=== PATIENT | male | born 1960 | race Caucasian/White ===

== ENCOUNTER 2017-09-19 20:39 | Inpatient (IN) | payer MEDICARE, MEDICAID ==
[~2017-09-19] VITALS: Ht 180.3 cm; Wt 56.8 kg
[~2017-09-19 20:39] MED LIST: ALBUTEROL SULFATE 2.5 MG/3 ML HHN SCH; CYCLOBENZAPRINE 10 MG TABLET PO PRN
[2017-09-19] MEDS ORDERED: SODIUM CHLORIDE FLUSH 10ML SYR IVF ONE (21:00)
[2017-09-19 21:06] LABS: BASOPHILS # (AUTO) 0.05 x10^3/uL (0-0.1); BASOPHILS % (AUTO) 0 % (0-1); EOSINOPHILS % (AUTO) 0 % (1-7); LYMPHOCYTES # (AUTO) 0.67 x10^3/uL (1-3.4); LYMPHOCYTES % (AUTO) 4 % (22-44); MD NO; MEAN CORPUSCULAR HEMOGLOBIN 26.1 pg (27.5-34.5); MEAN CORPUSCULAR HGB CONC 32.6 g/dL (33.2-36.2); MEAN CORPUSCULAR VOLUME 80.1 fL (81-97); MONOCYTES # (AUTO) 0.76 x10^3/uL (0.2-0.8); MONOCYTES % (AUTO) 5 % (2-9); NEUTROPHILS # (AUTO) 15.05 x10^3/uL (1.8-6.8); NEUTROPHILS % (AUTO) 91 % (42-75); PLATELET COUNT 229 x10^3/uL (130-400); RED CELL DISTRIBUTION WIDTH 15.9 % (9.4-14.8)
[2017-09-19 21:19] LABS: ALANINE AMINOTRANSFERASE 23 U/L (12-78); ALBUMIN 3.1 g/dL (3.4-5.0); ANION GAP 6 mmol/L (5-15); CALCIUM 8.8 mg/dL (8.5-10.1); CHLORIDE 84 mmol/L (98-107); CREATININE 0.77 mg/dL (0.7-1.3)
[2017-09-19 21:22] LABS: ALKALINE PHOSPHATASE 49 U/L (45-117); BILIRUBIN,TOTAL 0.5 mg/dL (0.2-1.0); TOTAL PROTEIN 6.4 g/dL (6.4-8.2); TROPONIN I 0.078 ng/mL (0.000-0.045)
[2017-09-19] MEDS ORDERED: ALBU18HF INH (22:03)
[2017-09-19] MEDS ORDERED: TIOT18CA INH (22:03)
[2017-09-19] MEDS ORDERED: ATOR-2 PO (22:03)
[2017-09-19] MEDS ORDERED: CARV3.122 PO (22:03)
[2017-09-19] MEDS ORDERED: CLOP75TA PO (22:03)
[2017-09-19] MEDS ORDERED: LISI2.5T PO (22:03)
[2017-09-19] MEDS ORDERED: CYCL5TAB PO (22:03)
[2017-09-19] MEDS ORDERED: DUONEB INH (22:03)
[2017-09-19] MEDS ORDERED: NITR1PAT24 TD (22:03)
[2017-09-19] MEDS ORDERED: LEVO25TA4 PO (22:03)
[2017-09-19] MEDS ORDERED: ASPI-515 PO (22:03)
[2017-09-19] MEDS ORDERED: AZITHROMYCIN 500 MG in SODIUM CHLORIDE 0.9% 250 ML IV ONE (22:30)
[2017-09-19] MEDS ORDERED: OMNIPAQUE 350 MG/ML, 100ML BOTTLE ONE (22:39)
[2017-09-19] MEDS ORDERED: PROMETHAZINE 25 MG/ML, 1ML IM PRN (23:00)
[2017-09-19] MEDS ORDERED: ONDANSETRON ODT 4 MG PO PRN (23:00)
[2017-09-19] MEDS ORDERED: ONDANSETRON 2MG/ML, 2ML IVPush PRN (23:00)
[2017-09-19] MEDS ORDERED: LABETALOL 5MG/ML, 20ML IVPush PRN (23:00)
[2017-09-19] MEDS ORDERED: ACETAMINOPHEN 325 MG TABLET PO PRN (23:00)
[2017-09-19] MEDS ORDERED: OXYcodone IR 5MG TABLET PO PRN (23:00)
[2017-09-19] MEDS ORDERED: DOCUSATE 100 MG CAPSULE PO PRN (23:00)
[2017-09-19] MEDS ORDERED: hydrALAzine 20 MG/ML, 1ML IVPush PRN (23:00)
[2017-09-19] MEDS ORDERED: BISACODYL 10 MG SUPP PR PRN (23:00)
[2017-09-19] MEDS ORDERED: POLYETHYLENE GLYCOL 17 GM PACKET PO PRN (23:00)
[2017-09-19] MEDS ORDERED: morphine SULFATE 10 MG/ML, 1ML IVPush PRN (23:00)
[2017-09-19] MEDS ORDERED: CEFTRIAXONE PMX 2GM/50ML 50 ML IV SCH (23:30)
[2017-09-19 23:35] LABS: HEMOGLOBIN A1C 6.1 % (4.2-6.3)
[2017-09-19 23:36] LABS: FREE T4 (FREE THYROXINE) 1.29 ng/dL (0.76-1.46); THYROID STIMULATING HORMONE 4.33 mIU/L (0.358-3.740)
[2017-09-20] MEDS ORDERED: ALBUTEROL/IPRATROPIUM 2.5MG/0.5MG, 3 ML NPPB PRN
[2017-09-20] MEDS ORDERED: CEFTRIAXONE PMX 2GM/50ML 50 ML ONE (00:05)
[2017-09-20] MEDS ORDERED: HEPARIN 5,000 UNITS/ML, 1ML ONE ×2 (00:05→05:50)
[2017-09-20] MEDS: LISINOPRIL 5 MG TABLET PO SCH ×3 (00:10→22:16)
[2017-09-20] MEDS: HEPARIN 5,000 UNITS/ML, 1ML SQ SCH ×4 (00:10→22:18)
[2017-09-20] MEDS: ATORVASTATIN 80 MG TABLET PO SCH ×2 (00:11→22:17)
[2017-09-20] MEDS: CARVEDILOL 3.125 MG TABLET PO SCH ×3 (00:12→22:17)
[2017-09-20 02:40] LABS: TROPONIN I 0.361 ng/mL (0.000-0.045)
[2017-09-20 05:02] LABS: BASOPHILS # (AUTO) 0.05 x10^3/uL (0-0.1); BASOPHILS % (AUTO) 0 % (0-1); EOSINOPHILS % (AUTO) 0 % (1-7); LYMPHOCYTES # (AUTO) 0.65 x10^3/uL (1-3.4); LYMPHOCYTES % (AUTO) 5 % (22-44); MD NO; MEAN CORPUSCULAR HEMOGLOBIN 25.9 pg (27.5-34.5); MEAN CORPUSCULAR HGB CONC 31.9 g/dL (33.2-36.2); MEAN CORPUSCULAR VOLUME 81.3 fL (81-97); MEAN PLATELET VOLUME 8.7 fL (7.4-10.4); MONOCYTES # (AUTO) 0.89 x10^3/uL (0.2-0.8); MONOCYTES % (AUTO) 7 % (2-9); NEUTROPHILS % (AUTO) 88 % (42-75); PLATELET COUNT 209 x10^3/uL (130-400); RED BLOOD COUNT 5.37 x10^6/uL (4.38-5.82); RED CELL DISTRIBUTION WIDTH 15.7 % (9.4-14.8)
[2017-09-20 05:15] LABS: ALBUMIN 2.7 g/dL (3.4-5.0); ANION GAP 6 mmol/L (5-15); CHLORIDE 84 mmol/L (98-107)
[2017-09-20 05:19] LABS: ALANINE AMINOTRANSFERASE 20 U/L (12-78); ALKALINE PHOSPHATASE 50 U/L (45-117); BILIRUBIN,TOTAL 0.5 mg/dL (0.2-1.0); CHOLESTEROL, TOTAL 92 mg/dL (140-239); HDL CHOL % 50 % (26-37); HDL CHOLESTEROL (DIRECT) 46 mg/dL (40-60); LDL CHOLESTEROL,CALCULATED 34 mg/dL (54-169); LDL/HDL RATIO 0.7 (0.5-3.0); TOTAL PROTEIN 5.6 g/dL (6.4-8.2); TRIGLYCERIDES 60 mg/dL (50-200); VLDL CHOLESTEROL 12 mg/dL (0-25)
[2017-09-20 08:15] LABS: TROPONIN I 0.324 ng/mL (0.000-0.045)
[2017-09-20] MEDS ORDERED: ASPIRIN 81 MG TABLET EC ONE (08:52)
[2017-09-20] MEDS: LEVOTHYROXINE 50 MCG TABLET PO SCH (08:58)
[2017-09-20] MEDS ORDERED: TEMPLATE NON-FORMULARY MED. (Tiotropium Bromide** (Spiriva**) 18 MCG) INH SCH (09:00)
[2017-09-20] MEDS ORDERED: CLOPIDOGREL 75 MG TABLET PO SCH (09:00)
[2017-09-20] MEDS ORDERED: CLOPIDOGREL 75 MG TABLET ONE (09:00)
[2017-09-20] MEDS ORDERED: ASPIRIN 81 MG TABLET EC PO SCH (09:00)
[2017-09-20 10:53] VITALS: BP 120/85
[2017-09-20 12:38] LABS: MICROSCOPIC NOT IND
[2017-09-20 12:44] LABS: CULTURE INDICATED? NO
[2017-09-20 14:00] VITALS: BP 110/79
[2017-09-20] MEDS ORDERED: MAGNESIUM SULFATE PMX 2GM/50ML 50 ML IV ONE (15:00)
[2017-09-20 18:26] LABS: TROPONIN I 0.201 ng/mL (0.000-0.045)
[2017-09-20 19:39] VITALS: BP 103/69
[2017-09-20] MEDS ORDERED: AZITHROMYCIN 500 MG in SODIUM CHLORIDE 0.9% 250 ML IV SCH (23:00)
[2017-09-21] MEDS ORDERED: CEFTRIAXONE PMX 2GM/50ML 50 ML IV SCH
[2017-09-21 00:40] LABS: TROPONIN I 0.146 ng/mL (0.000-0.045)
[2017-09-21 01:06] VITALS: BP 99/64
[2017-09-21 06:09] LABS: BASOPHILS # (AUTO) 0.01 x10^3/uL (0-0.1); BASOPHILS % (AUTO) 0 % (0-1); EOSINOPHILS # (AUTO) 0.03 x10^3/uL (0-0.4); EOSINOPHILS % (AUTO) 0 % (1-7); LYMPHOCYTES # (AUTO) 0.71 x10^3/uL (1-3.4); LYMPHOCYTES % (AUTO) 9 % (22-44); MD NO; MEAN CORPUSCULAR HEMOGLOBIN 25.7 pg (27.5-34.5); MEAN CORPUSCULAR HGB CONC 31.6 g/dL (33.2-36.2); MEAN CORPUSCULAR VOLUME 81.3 fL (81-97); MEAN PLATELET VOLUME 8.3 fL (7.4-10.4); MONOCYTES # (AUTO) 0.64 x10^3/uL (0.2-0.8); MONOCYTES % (AUTO) 8 % (2-9); NEUTROPHILS # (AUTO) 6.24 x10^3/uL (1.8-6.8); NEUTROPHILS % (AUTO) 82 % (42-75); PLATELET COUNT 220 x10^3/uL (130-400); RED BLOOD COUNT 5.06 x10^6/uL (4.38-5.82); RED CELL DISTRIBUTION WIDTH 16.1 % (9.4-14.8)
[2017-09-21 06:28] LABS: CHLORIDE 87 mmol/L (98-107)
[2017-09-21 06:38] LABS: TROPONIN I 0.104 ng/mL (0.000-0.045)
[2017-09-21 06:47] LABS: ANION GAP 9 mmol/L (5-15); CALCIUM 8.3 mg/dL (8.5-10.1); CREATININE 0.55 mg/dL (0.7-1.3)
[2017-09-21 08:04] VITALS: BP 98/63
[2017-09-21] MEDS ORDERED: Tiotropium Bromide (Spiriva) INH SCH (09:00)
[2017-09-21] MEDS ORDERED: CLOPIDOGREL 75 MG TABLET PO SCH (09:00)
[2017-09-21] MEDS ORDERED: ASPIRIN 81 MG TABLET EC PO SCH (09:00)
[2017-09-21 10:04] VITALS: BP 107/65
[2017-09-21] MEDS: CARVEDILOL 3.125 MG TABLET PO SCH (10:05)
[2017-09-21] MEDS: LEVOTHYROXINE 50 MCG TABLET PO SCH (10:05)
[2017-09-21] MEDS: HEPARIN 5,000 UNITS/ML, 1ML SQ SCH (10:06)
[2017-09-21] MEDS ORDERED: AZIT500T PO (10:42)
[2017-09-21] MEDS ORDERED: CEFD300C37 PO (10:42)
== END 2017-09-21 12:08 | disposition home or self-care (01) | DRG 871 ==
LOC: ED 21:47 → EDIP 22:23 → 5SO 09-20 10:45 → DCLOUNGE 09-21 11:58
PROVIDERS: ADMIT Internal Medicine; ATTEND Internal Medicine
DX: A41.9 Sepsis, unspecified organism (principal); J15.9 Unspecified bacterial pneumonia; J96.21 Acute and chronic respiratory failure with hypoxia; I11.0 Hypertensive heart disease with heart failure; I50.32 Chronic diastolic (congestive) heart failure; E44.0 Moderate protein-calorie malnutrition; E87.1 Hypo-osmolality and hyponatremia; J44.0 Chronic obstructive pulmonary disease with (acute) lower respiratory infection; J44.1 Chronic obstructive pulmonary disease with (acute) exacerbation; Z68.1 Body mass index [BMI] 19.9 or less, adult; E03.9 Hypothyroidism, unspecified; E78.5 Hyperlipidemia, unspecified; I25.10 Atherosclerotic heart disease of native coronary artery without angina pectoris; Z85.819 Personal history of malignant neoplasm of unspecified site of lip, oral cavity, and pharynx; Z87.891 Personal history of nicotine dependence; Z92.3 Personal history of irradiation; Z92.21 Personal history of antineoplastic chemotherapy; Z95.5 Presence of coronary angioplasty implant and graft; Z99.81 Dependence on supplemental oxygen; Z88.0 Allergy status to penicillin
CPT/HCPCS: 36415; 71045; 71275; 80048; 80053; 80061; 81003; 83036; 83735; 83880; 84439; 84443; 84484; 85025; 85379; 87040; 93005; 93306; 96365; 96367; 96376; J0456; J0696; J1644; Q9967; J3475; J7050